=== PATIENT | male | born 1970 | race African-American/Black ===

== ENCOUNTER 2021-09-27 10:52 | Inpatient (IN) | payer SELFPAY ==
[2021-09-27] VITALS (18 sets, daily range): BP systolic 36–122; BP diastolic 17–73
[~2021-09-27] VITALS: Ht 182.9 cm; Wt 117.7 kg
[2021-09-27] MEDS ORDERED: AMLO-504 PO (11:21)
[2021-09-27] MEDS ORDERED: METF-817 PO (11:21)
[2021-09-27] MEDS ORDERED: ONDANSETRON HCL 4MG/2ML INJ IV STA (11:57)
[2021-09-27] MEDS ORDERED: MORPHINE SULFATE 4 MG/ML CPJ (NOT FOR IM USE) IV STA (11:57)
[2021-09-27] MEDS ORDERED: SODIUM CHLORIDE 0.9% 1,000 ML IV ONE ×2 (12:00→13:45)
[2021-09-27] MEDS ORDERED: MAGNESIUM/ALUMINUM HYDROXIDE/SIMETHICONE 30ML UDC PO ONE (12:00)
[2021-09-27 12:26] LABS: BASOPHILS % 0.4 % (0.0-2.0); EOSINOPHILS % 0.7 % (0.0-5.0); HEMATOCRIT. 42.5 % (42.0-52.0); HEMOGLOBIN. 13.8 g/dL (14.0-18.0); LYMPHOCYTES % 13.1 % (20.0-50.0); MEAN CORPUSCULAR HEMOGLOBIN 28.9 pg (28.0-32.0); MEAN CORPUSCULAR VOLUME 88.9 fL (80.0-94.0); MEAN PLATELET VOLUME 9.4 fl (7.4-10.4); MONOCYTES % 7.2 % (2.0-8.0); NEUTROPHILS % 78.6 % (40.0-76.0); PLATELET 383 x1000/uL (130-400); RED BLOOD CELL COUNT 4.79 mill/uL (4.7-6.1); RED CELL DISTRIBUTION WIDTH 13.9 % (11.6-14.6)
[2021-09-27] MEDS ORDERED: FAMOTIDINE 20MG/2ML VIAL IV ONE (12:30)
[2021-09-27] MEDS ORDERED: INSULIN REGULAR (HUMULIN R) 300UNITS/3ML VIAL IV ONE (12:30)
[2021-09-27 12:39] LABS: CHLORIDE 98 mEq/L (98-107)
[2021-09-27 12:51] LABS: BETA HYDROXYBUTYRATE 5.1 mMol/L (0.0-0.3)
[2021-09-27] MEDS ORDERED: INSULIN REGULAR (DRIP) 100 UNITS in SODIUM CHLORIDE 0.9% 100 ML IV ONE (13:45)
[2021-09-27 14:38] LABS: CLARITY URINE CLEAR (CLEAR); COLOR URINE YELLOW (YELLOW); KETONES URINE 2+ (NEGATIVE); LEUKOCYTE ESTERASE URINE NEGATIVE (NEGATIVE); NITRITE URINE NEGATIVE (NEGATIVE); OCCULT BLOOD URINE NEGATIVE (NEGATIVE); PROTEIN URINE TRACE (NEGATIVE); UROBILINOGEN URINE 0.2 E.U./dL (0.2-1.0)
[2021-09-27 16:13] LABS: PHOSPHORUS 4.9 mg/dL (2.5-4.9)
[2021-09-27] MEDS ORDERED: ONDANSETRON HCL 4MG/2ML INJ IV PRN (17:00)
[2021-09-27] MEDS ORDERED: DEXTROSE 50% WATER 50ML SYRINGE IV PRN (17:00)
[2021-09-27] MEDS ORDERED: *PATIENT'S OWN MEDICATION STORAGE XX SCH (18:00)
[2021-09-27] MEDS ORDERED: METFORMIN HCL 500MG TABLET PO SCH (18:20)
[2021-09-27] MEDS: BLOOD SUGAR DIAGNOSTIC STRIP TEST SCH ×2 (18:25→21:05)
[2021-09-27] MEDS: INSULIN LISPRO 100 UNITS/ML SUBCUT SCH ×2 (18:51→21:15)
[2021-09-27] MEDS: INSULIN GLARGINE UD 100 UNITS/ML SYR SUBCUT SCH ×2 (19:09→23:08)
[2021-09-27] MEDS: FAMOTIDINE 20MG/2ML VIAL IV SCH (21:06)
[2021-09-28] VITALS (7 sets, daily range): BP systolic 74–110; BP diastolic 37–73
[2021-09-28] MEDS: BLOOD SUGAR DIAGNOSTIC STRIP TEST SCH ×4 (06:36→20:23)
[2021-09-28] MEDS: INSULIN LISPRO 100 UNITS/ML SUBCUT SCH ×5 (06:44→20:33)
[2021-09-28 06:46] LABS: BASOPHILS % 0.3 % (0.0-2.0); EOSINOPHILS % 0.5 % (0.0-5.0); HEMATOCRIT. 38.1 % (42.0-52.0); HEMOGLOBIN. 12.9 g/dL (14.0-18.0); LYMPHOCYTES % 18.5 % (20.0-50.0); MEAN CORPUSCULAR HEMOGLOBIN 29.9 pg (28.0-32.0); MEAN CORPUSCULAR VOLUME 88.6 fL (80.0-94.0); MEAN PLATELET VOLUME 9.3 fl (7.4-10.4); MONOCYTES % 7.4 % (2.0-8.0); NEUTROPHILS % 73.3 % (40.0-76.0); PLATELET 320 x1000/uL (130-400); RED BLOOD CELL COUNT 4.31 mill/uL (4.7-6.1); RED CELL DISTRIBUTION WIDTH 13.6 % (11.6-14.6)
[2021-09-28 06:53] LABS: CHLORIDE 102 mEq/L (98-107)
[2021-09-28 07:03] LABS: LDL CHOLESTEROL 132 mg/dL (5-100)
[2021-09-28 07:04] LABS: HDL CHOLESTEROL 42 mg/dL (40-59)
[2021-09-28] MEDS ORDERED: AMLODIPINE 10MG TABLET PO SCH (09:00)
[2021-09-28] MEDS: FAMOTIDINE 20MG/2ML VIAL IV SCH (09:24)
[2021-09-28] MEDS: INSULIN GLARGINE UD 100 UNITS/ML SYR SUBCUT SCH (09:26)
[2021-09-28] MEDS ORDERED: INSULIN LISPRO 100 UNITS/ML SUBCUT SCH (15:00)
[2021-09-28] MEDS ORDERED: ZOLPIDEM TARTRATE 5MG TABLET PO PRN (19:30)
[2021-09-28] MEDS: FAMOTIDINE 20MG TABLET PO SCH (20:23)
[2021-09-28] MEDS ORDERED: INSULIN GLARGINE UD 100 UNITS/ML SYR SUBCUT SCH (22:00)
[2021-09-29] VITALS: BP 114/62
[2021-09-29 04:00] VITALS: BP 114/76
[2021-09-29] MEDS: INSULIN LISPRO 100 UNITS/ML SUBCUT SCH ×7 (05:59→21:16)
[2021-09-29] MEDS ORDERED: INSULIN LISPRO 100 UNITS/ML SUBCUT NR (06:00)
[2021-09-29] MEDS: BLOOD SUGAR DIAGNOSTIC STRIP TEST SCH ×4 (06:29→20:34)
[2021-09-29 07:49] VITALS: BP 114/72
[2021-09-29] MEDS: FAMOTIDINE 20MG TABLET PO SCH ×2 (08:46→20:34)
[2021-09-29] MEDS: INSULIN GLARGINE UD 100 UNITS/ML SYR SUBCUT SCH ×2 (10:31→21:16)
[2021-09-29 11:46] LABS: METHADONE URINE SCREEN NEGATIVE (NEGATIVE); OPIATES URINE SCREEN NEGATIVE (NEGATIVE)
[2021-09-29 11:47] LABS: *AMPHETAMINES SCREEN URINE NEGATIVE (NEGATIVE); *BARBITURATES SCREEN URINE NEGATIVE (NEGATIVE); *BENZODIAZEPINES SCREEN URINE NEGATIVE (NEGATIVE); *COCAINE SCREEN URINE PRESUMTIVE POSITIVE (NEGATIVE); CANNABINOID URINE SCREEN NEGATIVE (NEGATIVE); PHENCYCLIDINE URINE SCREEN NEGATIVE (NEGATIVE)
[2021-09-29 12:00] VITALS: BP 128/62
[2021-09-29 16:00] VITALS: BP 106/68
[2021-09-29] MEDS: GLIPIZIDE 10MG TABLET PO SCH (17:25)
[2021-09-29] MEDS: TAMSULOSIN HCL 0.4MG SR CAPSULE PO SCH (17:45)
[2021-09-29 20:00] VITALS: BP 112/64
[2021-09-30] VITALS: BP 113/65
[2021-09-30 04:00] VITALS: BP 126/84
[2021-09-30] MEDS: BLOOD SUGAR DIAGNOSTIC STRIP TEST SCH ×4 (05:52→21:04)
[2021-09-30] MEDS: GLIPIZIDE 10MG TABLET PO SCH ×2 (06:14→17:00)
[2021-09-30] MEDS: INSULIN LISPRO 100 UNITS/ML SUBCUT SCH ×7 (06:18→21:05)
[2021-09-30 08:00] VITALS: BP 110/68
[2021-09-30] MEDS: TAMSULOSIN HCL 0.4MG SR CAPSULE PO SCH (09:20)
[2021-09-30] MEDS: FAMOTIDINE 20MG TABLET PO SCH ×2 (09:20→21:04)
[2021-09-30] MEDS: INSULIN GLARGINE UD 100 UNITS/ML SYR SUBCUT SCH ×2 (09:21→22:02)
[2021-09-30 12:00] VITALS: BP 107/70
[2021-09-30] MEDS ORDERED: TAMS-11 PO (15:10)
[2021-09-30] MEDS ORDERED: LANTUSUD SUBCUT (15:10)
[2021-09-30 16:00] VITALS: BP 109/69
[2021-09-30 20:00] VITALS: BP 97/68
[2021-10-01] VITALS: BP 114/76
[2021-10-01 04:00] VITALS: BP 133/71
[2021-10-01] MEDS: BLOOD SUGAR DIAGNOSTIC STRIP TEST SCH ×3 (05:57→16:43)
[2021-10-01] MEDS: INSULIN LISPRO 100 UNITS/ML SUBCUT SCH ×4 (06:10→12:09)
[2021-10-01] MEDS: GLIPIZIDE 10MG TABLET PO SCH (06:50)
[2021-10-01 08:00] VITALS: BP 113/71
[2021-10-01] MEDS: TAMSULOSIN HCL 0.4MG SR CAPSULE PO SCH (09:05)
[2021-10-01] MEDS: FAMOTIDINE 20MG TABLET PO SCH (09:05)
[2021-10-01] MEDS: INSULIN GLARGINE UD 100 UNITS/ML SYR SUBCUT SCH (10:10)
[2021-10-01 12:00] VITALS: BP 113/60
[2021-10-01] MEDS ORDERED: GLIP10TA10 MT (12:26)
[2021-10-01] MEDS ORDERED: INSLIS SUBCUT (12:26)
[2021-10-01 15:55] VITALS: BP 105/62
[2021-10-01] MEDS ORDERED: INSULIN LISPRO 100 UNITS/ML SUBCUT SCH (16:40)
== END 2021-10-01 17:38 | disposition home or self-care (01) | DRG 420 ==
LOC: ER 10:58 → CVICU 14:50 → EDBEDREQ 15:00 → ENRESERV 15:37 → 7EST 09-28 00:50
PROVIDERS: ADMIT Internal Medicine; ATTEND Internal Medicine
DX: E11.10 Type 2 diabetes mellitus with ketoacidosis without coma (principal); N17.0 Acute kidney failure with tubular necrosis; E78.5 Hyperlipidemia, unspecified; E66.9 Obesity, unspecified; E87.1 Hypo-osmolality and hyponatremia; I10 Essential (primary) hypertension; Z68.35 Body mass index [BMI] 35.0-35.9, adult; Z71.3 Dietary counseling and surveillance
CPT/HCPCS: 36415; 80048; 80053; 80061; 80305; 81003; 82010; 82962; 83036; 83735; 84100; 84484; 85025; 93005; 99291; J1815; J3490; J7030; J7050